=== PATIENT | female | born 1950 | race Caucasian/White ===

== ENCOUNTER → 2018-08-26 | Outpatient (CLI) | payer MEDICARE ==
[~2018-08-26] VITALS: Ht 154.9 cm; Wt 63.5 kg
[~2018-08-26] MED LIST: REGADENOSON 0.4 MG/5 ML PF SYG IVP SCH
== END | disposition home or self-care (01) ==
LOC: SHCH 08:15
PROVIDERS: ATTEND Internal Medicine Cardiovascular Disease
DX: R07.9 Chest pain, unspecified (principal); R06.00 Dyspnea, unspecified
CPT/HCPCS: 78452; 93017; 96374; A9500 ×2; J2785

== ENCOUNTER 2018-10-29 13:56 | Emergency (ER) | payer MEDICARE, OTHER ==
[2018-10-29] MEDS ORDERED: ACETAMINOPHEN 325 MG TAB ONE (14:10)
[2018-10-29 14:38] LABS: MEAN CORPUSCULAR VOLUME 99.5 fL (79-99); RED BLOOD CELL COUNT(AUTO) 4.18 MIL/uL (4.00-5.50); WHITE BLOOD COUNT (AUTO) 6.3 K/uL (4.8-10.8)
[2018-10-29 14:39] LABS: CARBON DIOXIDE 35 mmol/L (21-32); CHLORIDE 101 mmol/L (101-111); CREATININE 0.9 mg/dL (0.5-1.5); GLOMERULAR FILTR. RATE CALC 66 mL/min (>60); GLUCOSE,RANDOM 119 mg/dL (70-105); SODIUM SERUM 143 mmol/L (136-145); UREA NITROGEN, BLOOD 11 mg/dL (7-18)
[2018-10-29 14:42] LABS: INR 0.98 (0.85-1.15); PARTIAL THROMBOPLASTIN TIME 26.8 SEC (26.3-35.5); PROTHROMBIN TIME 10.3 SEC (9.6-11.6)
[2018-10-29 14:44] LABS: CREATINE KINASE, TOTAL 78 U/L (21-232)
[2018-10-29 14:45] LABS: EOSINOPHILS % (AUTO) 3.6 % (0.0-8.0); HEMATOCRIT 41.6 % (36-48); LYMPHOCYTES % (AUTO) 25.2 % (21.0-51.0); MEAN CORPUSCULAR HEMOGLOBIN 34.1 pg (27.0-33.0); MEAN CORPUSCULAR HGB CONC 34.2 g/dL (32.0-36.0); MONOCYTES % (AUTO) 7.8 % (3.0-13.0); NEUTROPHILS % (AUTO) 62.4 % (40.0-77.0); PLATELET COUNT (AUTO) 247 K/uL (130-400)
[2018-10-29 14:46] LABS: ALCOHOL, BLOOD < 3 mg/dL (0-10)
[2018-10-29] MEDS ORDERED: POTASSIUM CHLORIDE 20 MEQ ERTAB PO ONE (15:20)
== END 2018-10-29 16:34 | disposition home or self-care (01) ==
LOC: EDH 13:56
DX: S13.4XXA Sprain of ligaments of cervical spine, initial encounter (principal); S20.219A Contusion of unspecified front wall of thorax, initial encounter; R51 Headache; Z87.891 Personal history of nicotine dependence; Z88.8 Allergy status to other drugs, medicaments and biological substances; V49.88XA Car occupant (driver) (passenger) injured in other specified transport accidents, initial encounter; Y93.89 Activity, other specified; Y92.89 Other specified places as the place of occurrence of the external cause; Y99.8 Other external cause status
CPT/HCPCS: 36415; 70450; 71045; 71260; 72125; 80048; 82550; 84484; 85025; 85610; 85730; 93005; 99284; G0480

== ENCOUNTER 2018-11-01 16:11 | Inpatient (IN) | payer OTHER ==
[~2018-11-01] VITALS: Ht 154.9 cm; Wt 61.6 kg
[2018-11-01 16:48] LABS: BASOPHILS % (AUTO) 0.7 % (0.0-5.0); EOSINOPHILS % (AUTO) 1.7 % (0.0-8.0); HEMATOCRIT 43.9 % (36-48); LYMPHOCYTES % (AUTO) 20.7 % (21.0-51.0); MEAN CORPUSCULAR HEMOGLOBIN 34.1 pg (27.0-33.0); MEAN CORPUSCULAR HGB CONC 34.8 g/dL (32.0-36.0); MEAN CORPUSCULAR VOLUME 98.2 fL (79-99); MONOCYTES % (AUTO) 5.4 % (3.0-13.0); NEUTROPHILS % (AUTO) 71.5 % (40.0-77.0); NUCLEATED RED BLOOD CELLS 0.1 % (0.0-0.19); PLATELET COUNT (AUTO) 288 K/uL (130-400); RED BLOOD CELL COUNT(AUTO) 4.47 MIL/uL (4.00-5.50); RED CELL DISTRIBUTION WIDTH 12.9 % (11.0-15.5)
[2018-11-01 17:07] LABS: APPEARANCE,URINE CLOUDY (CLEAR); BILIRUBIN,URINE SMALL (NEGATIVE); COLOR,URINE YELLOW (YELLOW); GLUCOSE, URINE (UA) NEGATIVE (NEGATIVE); KETONES,URINE 5 mg/dL (NEGATIVE); LEUKOCYTE ESTERASE ,URINE MODERATE (NEGATIVE); NITRATE,URINE NEGATIVE (NEGATIVE); OCCULT BLOOD,URINE MODERATE (NEGATIVE); PH,URINE 5.5 (5.0-8.0); PROTEIN,URINE TRACE (NEGATIVE); UROBILINOGEN,URINE 0.2 mg/dL (0.2-1.0)
[2018-11-01 17:09] LABS: ALBUMIN 3.9 g/dL (3.5-5.0); BILIRUBIN,TOTAL 0.7 mg/dL (0.2-1.0); CREATININE 1.2 mg/dL (0.5-1.5); TOTAL PROTEIN, SERUM 8.2 g/dL (6.0-8.3)
[2018-11-01 17:12] LABS: POTASSIUM 2.9 mmol/L (3.5-5.1)
[2018-11-01 17:18] LABS: BACTERIA,URINE Few /HPF (None Seen); WBC,URINE 26-50 /HPF (0-1)
[2018-11-01 17:19] LABS: MUCUS,URINE Rare LPF (None Seen); SQUAMOUS EPITHELIAL CELL,UR Moderate /HPF (0-2)
[2018-11-01] MEDS ORDERED: POTASSIUM BICARB/CIT AC 25 MEQ TABLET.EFF ONE (17:47)
[2018-11-01 17:55] LABS: INR 0.99 (0.85-1.15); PARTIAL THROMBOPLASTIN TIME 25.7 SEC (26.3-35.5); PROTHROMBIN TIME 10.4 SEC (9.6-11.6)
[2018-11-01] MEDS: SODIUM CHLORIDE 0.9% 1000ML 1,000 ML IV SCH (20:09)
[2018-11-01] MEDS ORDERED: ONDANSETRON HCL 4 MG/2 ML VIAL IV PRN (20:15)
[2018-11-01] MEDS ORDERED: DIAZEPAM 5 MG TABLET PO PRN (20:15)
[2018-11-01] MEDS ORDERED: MORPHINE SULFATE 2 MG/ML 1ML SYG IV PRN (20:15)
[2018-11-01] MEDS ORDERED: MORPHINE SULFATE 4 MG/1ML SYG ONE (21:31)
[2018-11-01] MEDS ORDERED: ONDANSETRON HCL 4 MG/2 ML VIAL ONE (21:53)
[2018-11-01 23:45] VITALS: BP 113/64
[2018-11-02] MEDS: ZOSYN 3.375GM+NS 50ML 50 ML IV SCH ×4 (00:36→20:56)
[2018-11-02] MEDS: PHENAZOPYRIDINE HCL 200 MG TABLET PO SCH ×4 (00:36→20:56)
[2018-11-02] MEDS: FAMOTIDINE/PF 20 MG/2 ML VIAL IV SCH ×3 (00:36→20:56)
[2018-11-02] MEDS ORDERED: PNEUMOCOCCAL VACCINE POLYVALENT 0.5 ML/VIAL [PPV] IM ONE (01:30)
[2018-11-02 04:12] VITALS: BP 137/82
[2018-11-02] MEDS ORDERED: MORPHINE SULFATE 4 MG/1ML SYG ONE (04:29)
[2018-11-02] MEDS ORDERED: PNEUMOCOCCAL VACCINE POLYVALENT 0.5 ML/VIAL [PPV] ONE (07:10)
[2018-11-02 08:29] LABS: HEMATOCRIT 41.1 % (36-48); MEAN CORPUSCULAR HEMOGLOBIN 33.3 pg (27.0-33.0); MEAN CORPUSCULAR HGB CONC 33.8 g/dL (32.0-36.0); MEAN CORPUSCULAR VOLUME 98.7 fL (79-99); PLATELET COUNT (AUTO) 208 K/uL (130-400); RED BLOOD CELL COUNT(AUTO) 4.17 MIL/uL (4.00-5.50); WHITE BLOOD COUNT (AUTO) 8.1 K/uL (4.8-10.8)
[2018-11-02 08:39] LABS: POTASSIUM 3.1 mmol/L (3.5-5.1)
[2018-11-02] MEDS ORDERED: LIDOCAINE HCL-MPF 1% 2ML VIAL IVP PRN ×3 (09:00→09:15)
[2018-11-02] MEDS ORDERED: POTASSIUM CHLORIDE 10% ELIXIR 20 MEQ/15 ML UDCUP PO PRN ×2 (09:00)
[2018-11-02] MEDS ORDERED: POTASSIUM CHLORIDE 10MEQ/100ML 100 ML IV PRN (09:00)
[2018-11-02] MEDS ORDERED: POTASSIUM CHLORIDE 20MEQ/100ML 100 ML IV PRN ×2 (09:00→09:15)
[2018-11-02] MEDS ORDERED: POTASSIUM CHLORIDE 20 MEQ ERTAB PO PRN (09:00)
[2018-11-02 09:06] VITALS: BP 128/73
[2018-11-02] MEDS: POTASSIUM CHLORIDE 20 MEQ ERTAB PO PRN (12:33)
[2018-11-02] MEDS: SODIUM CHLORIDE 0.9% 1000ML 1,000 ML IV SCH (12:36)
[2018-11-02 14:19] VITALS: BP 134/77
[2018-11-02 16:54] VITALS: BP 146/68
[2018-11-02 19:30] VITALS: BP 131/79
[2018-11-02 23:28] VITALS: BP 124/77
[2018-11-03] MEDS: POTASSIUM CHLORIDE 20 MEQ ERTAB PO PRN ×3 (01:19→09:03)
[2018-11-03 03:45] VITALS: BP 144/83
[2018-11-03] MEDS: SODIUM CHLORIDE 0.9% 1000ML 1,000 ML IV SCH (04:02)
[2018-11-03] MEDS: ZOSYN 3.375GM+NS 50ML 50 ML IV SCH (05:06)
[2018-11-03 05:55] LABS: EOSINOPHILS % (AUTO) 4.1 % (0.0-8.0); HEMATOCRIT 40.7 % (36-48); LYMPHOCYTES % (AUTO) 23.4 % (21.0-51.0); MEAN CORPUSCULAR HEMOGLOBIN 33.9 pg (27.0-33.0); MEAN CORPUSCULAR VOLUME 99.8 fL (79-99); MONOCYTES % (AUTO) 8.7 % (3.0-13.0); NEUTROPHILS % (AUTO) 62.8 % (40.0-77.0); PLATELET COUNT (AUTO) 241 K/uL (130-400); RED BLOOD CELL COUNT(AUTO) 4.08 MIL/uL (4.00-5.50); RED CELL DISTRIBUTION WIDTH 13.1 % (11.0-15.5); WHITE BLOOD COUNT (AUTO) 5.1 K/uL (4.8-10.8)
[2018-11-03 06:25] LABS: CREATININE 0.9 mg/dL (0.5-1.5); POTASSIUM 3.5 mmol/L (3.5-5.1)
[2018-11-03 07:00] VITALS: BP 144/81
[2018-11-03] MEDS ORDERED: CEPH-578 PO (08:22)
[2018-11-03] MEDS ORDERED: ENOXAPARIN SODIUM 30 MG/0.3 ML SQ SCH (09:00)
[2018-11-03] MEDS: FAMOTIDINE/PF 20 MG/2 ML VIAL IV SCH (09:03)
[2018-11-03] MEDS: PHENAZOPYRIDINE HCL 200 MG TABLET PO SCH (09:03)
== END 2018-11-03 11:15 | disposition home or self-care (01) | DRG 605 ==
LOC: EDH 16:11 → EDHIP 16:12 → OBSVTOIN 16:12 → 3AH 23:34
PROVIDERS: ADMIT Hospitalist; ATTEND Hospitalist
PROC: 5A09357 Assistance with Respiratory Ventilation, Less than 24 Consecutive Hours, Continuous Positive Airway Pressure (ICD-10-PCS; principal; 2018-11-02)
PROC: 3E0234Z Introduction of Serum, Toxoid and Vaccine into Muscle, Percutaneous Approach (ICD-10-PCS; 2018-11-02)
DX: S20.211A Contusion of right front wall of thorax, initial encounter (principal); N39.0 Urinary tract infection, site not specified; E87.6 Hypokalemia; R29.6 Repeated falls; E78.5 Hyperlipidemia, unspecified; I10 Essential (primary) hypertension; W19.XXXA Unspecified fall, initial encounter; Y93.89 Activity, other specified; Y92.098 Other place in other non-institutional residence as the place of occurrence of the external cause; Y99.8 Other external cause status; Z88.8 Allergy status to other drugs, medicaments and biological substances; Z23 Encounter for immunization
CPT/HCPCS: 36415; 70450; 71046; 71110; 72125; 74176; 80048; 80053; 81001; 85025; 85027; 85610; 85730; 90732; 94660; G0009; G0378; J1650; J2270; J2405; J2543; J3490; J7030

== ENCOUNTER → 2019-06-03 | Outpatient (CLI) | payer MEDICARE ==
[~2019-06-03] MED LIST changes: +CEPH-578 PO; -REGADENOSON 0.4 MG/5 ML PF SYG IVP SCH
== END | disposition home or self-care (01) ==
LOC: RAH 09:50
PROVIDERS: ATTEND Physician Assistant Medical
DX: Z12.31 Encounter for screening mammogram for malignant neoplasm of breast (principal)
CPT/HCPCS: 77067

== ENCOUNTER → 2021-03-01 | Outpatient (CLI) | payer MEDICARE | END | disposition home or self-care (01) | LOC: SHCH 09:48 | PROVIDERS: ATTEND Internal Medicine Cardiovascular Disease | DX: I10 Essential (primary) hypertension (principal); R06.00 Dyspnea, unspecified | CPT/HCPCS: 93306; 93356 ==

== ENCOUNTER → 2022-01-29 | Outpatient (CLI) | payer MEDICARE | END | disposition home or self-care (01) | LOC: LAB 10:51 | PROVIDERS: ATTEND Internal Medicine Gastroenterology | DX: K29.40 Chronic atrophic gastritis without bleeding (principal); K31.89 Other diseases of stomach and duodenum; A04.72 Enterocolitis due to Clostridium difficile, not specified as recurrent; K76.0 Fatty (change of) liver, not elsewhere classified; K29.80 Duodenitis without bleeding; Z79.899 Other long term (current) drug therapy | CPT/HCPCS: 36415; 82607; 86677 ==

== ENCOUNTER 2022-05-11 15:11 | Emergency (ER) | payer MEDICARE ==
[~2022-05-11] VITALS: Ht 154.9 cm; Wt 68.0 kg
[2022-05-11 15:12] VITALS: BP 126/70
[2022-05-11] MEDS ORDERED: NAPR-1180 PO (16:15)
== END 2022-05-11 16:28 | disposition home or self-care (01) ==
LOC: EDH 15:11
DX: S63.601A Unspecified sprain of right thumb, initial encounter (principal); F41.9 Anxiety disorder, unspecified; E78.00 Pure hypercholesterolemia, unspecified; I10 Essential (primary) hypertension; M79.7 Fibromyalgia; Z90.710 Acquired absence of both cervix and uterus; X58.XXXA Exposure to other specified factors, initial encounter; Y93.89 Activity, other specified; Y92.89 Other specified places as the place of occurrence of the external cause; Y99.8 Other external cause status
CPT/HCPCS: 29125; 73130

== ENCOUNTER → 2024-10-11 | Outpatient (CLI) | payer MEDICARE ==
[~2024-10-11] MED LIST changes: +NAPR-1180 PO
--- NOTE | 2024-10-11 10:35 | HMCIMG ---
DEXA BONE DENSITY SURVEY HISTORY: Osteoporosis COMPARISON: None FINDINGS: Bone densitometry study was performed. Bone mineral density of the lumbar spine is 0.912 gram per centimeter square which corresponds to a T score of -1.2 and a Z score of 1.1. Bone mineral density of the left hip is 0.750 grams per centimeter square which corresponds to a T score of -1.6 and a Z score of 0.1. IMPRESSION: 1. Osteopenia of the lumbar spine and left hip.
== END | disposition home or self-care (01) ==
LOC: RAH 09:30
PROVIDERS: ATTEND Internal Medicine
DX: M85.89 Other specified disorders of bone density and structure, multiple sites (principal); M81.0 Age-related osteoporosis without current pathological fracture
CPT/HCPCS: 77080

== ENCOUNTER → 2025-01-31 | Outpatient (CLI) | payer MEDICARE ==
[2025-01-31 12:29] LABS: BILIRUBIN,TOTAL 0.4 mg/dL (0.2-1.0); CREATININE 1.1 mg/dL (0.5-1.0); POTASSIUM 4.6 mmol/L (3.5-5.1); TOTAL PROTEIN, SERUM 8.1 g/dL (6.0-8.3)
== END | disposition home or self-care (01) ==
LOC: LAB 09:38
PROVIDERS: ATTEND Internal Medicine Cardiovascular Disease
DX: I71.20 Thoracic aortic aneurysm, without rupture, unspecified (principal)
CPT/HCPCS: 36415; 80053

== ENCOUNTER → 2025-02-20 | Outpatient (CLI) | payer MEDICARE ==
[~2025-02-20] MED LIST changes: +IOHEXOL 350 MG/ML 100ML INFUS..BTL IV ONE
--- NOTE | 2025-02-20 11:37 | HMCIMG ---
CT angiogram chest CLINICAL INDICATION: Thoracic aortic aneurysm, without rupture, unspecified COMPARISON: None. CT Dose Index (CTDI): 113.50 mGy Dose Length Product (DLP): 1408.10 total mGy PROTOCOL: Contrast: 100 cc of Isovue-370, injected IV, no complications Examination is done at 2.5 millimeter volumetric acquisition after contrast administration. Photography is done at 5 millimeter thick intervals for the thorax. FINDINGS: There is no evidence of pulmonary embolism. There is tortuosity of the right brachiocephalic vasculature. The airway is intact. The trachea and major bronchi are unremarkable. No pulmonary infiltrates or mass lesions are seen. No pleural effusions are identified. The exam of the juancarlos and mediastinum is unremarkable. No evidence of hilar enlargement is seen. There is ectasia of the ascending thoracic aorta, maximum diameter 4.4 x 4.2 cm. No dissection. No occlusion. No rupture. No significant brachiocephalic vascular abnormalities are seen. The heart is unremarkable. It is not enlarged. No significant coronary arterial calcifications are seen. There is no pericardial effusion. The rib cage appears unremarkable. The soft tissues of the chest wall are unremarkable. The dorsal spine shows no significant abnormalities. Limited evaluation of the upper abdomen demonstrates no gross abnormalities. IMPRESSION: No evidence of pulmonary embolism. Ectasia of the descending aorta. This study was performed using dose reduction techniques to include automated exposure control and/or adjustment of the mA and/or kV according to patient size.
== END | disposition home or self-care (01) ==
LOC: RAH 10:10
PROVIDERS: ATTEND Internal Medicine Cardiovascular Disease
DX: I71.23 Aneurysm of the descending thoracic aorta, without rupture (principal); I71.21 Aneurysm of the ascending aorta, without rupture; I71.20 Thoracic aortic aneurysm, without rupture, unspecified; I77.1 Stricture of artery
CPT/HCPCS: 71275; Q9967

== ENCOUNTER → 2025-03-06 | Outpatient (CLI) | payer MEDICARE ==
[~2025-03-06] MED LIST changes: -IOHEXOL 350 MG/ML 100ML INFUS..BTL IV ONE
[2025-03-06 16:16] LABS: BASOPHILS # (AUTO) 0.08 K/uL (0.00-0.20); EOSINOPHILS # (AUTO) 0.15 K/uL (0.00-0.70); EOSINOPHILS % (AUTO) 1.9 % (0.0-8.0); HEMATOCRIT 42.5 % (36-48); IMMATURE GRANULOCYTE ABSOLUTE 0.02 K/uL (0-1); LYMPHOCYTES % (AUTO) 25.5 % (21.0-51.0); MEAN CORPUSCULAR HEMOGLOBIN 31.3 pg (27.0-33.0); MEAN CORPUSCULAR VOLUME 97.9 fL (79-99); MONOCYTES # (AUTO) 0.6 K/uL (0.1-1.0); MONOCYTES % (AUTO) 7.9 % (3.0-13.0); NEUTROPHILS % (AUTO) 63.4 % (40.0-77.0); PLATELET COUNT (AUTO) 344 K/uL (130-400); RED BLOOD CELL COUNT(AUTO) 4.34 MIL/uL (4.00-5.50); RED CELL DISTRIBUTION WIDTH 13.2 % (11.0-15.5)
[2025-03-06 16:32] LABS: ALBUMIN 4.3 g/dL (3.5-5.0); BILIRUBIN,TOTAL 0.6 mg/dL (0.2-1.0); POTASSIUM 4.5 mmol/L (3.5-5.1); TOTAL PROTEIN, SERUM 8.2 g/dL (6.0-8.3)
[2025-03-06 16:40] LABS: B-TYPE NATRIURETIC PEPTIDE 48 pg/mL (0-100)
== END | disposition home or self-care (01) ==
LOC: LAB 11:44
PROVIDERS: ATTEND Internal Medicine Cardiovascular Disease
DX: E78.5 Hyperlipidemia, unspecified (principal); R07.9 Chest pain, unspecified; R06.00 Dyspnea, unspecified
CPT/HCPCS: 36415; 80053; 80061; 83880; 85025

== ENCOUNTER 2025-04-11 09:25 | Day surgery (SDC) | payer MEDICARE ==
--- NOTE | 2025-04-07 11:36 | EKG ---
[facility] Test Date: 2025-04-07 Test Time: 11:34:24 Pat Name: JEFFERSON COLEMAN Department: [facility] Room: Gender: F Seasoner Hand: [id number] : 1950 Requested By: RAMIRO MORAN Order Number: [id number] Reading MD: Ramiro Moran Measurements Intervals [place] Rate: 74 P: 35 NE: 180 QRS: 6 QRSD: 82 T: 73 QT: 410 QTc: 455 Interpretive Statements Normal sinus rhythm Nonspecific ST and T wave abnormality Compared to ECG 10/29/2018 14:17:19 ST (T wave) deviation now present Sinus tachycardia no longer present Atrial premature complex(es) no longer present Left ventricular hypertrophy no longer present Early repolarization no longer present Electronically Signed On 04-10-2025 22:13:26 CDT by Ramiro Moran Please click the below link to view image of tracing.
[2025-04-07 11:45] LABS: BASOPHILS # (AUTO) 0.08 K/uL (0.00-0.20); BASOPHILS % (AUTO) 1.2 % (0.0-5.0); EOSINOPHILS # (AUTO) 0.09 K/uL (0.00-0.70); EOSINOPHILS % (AUTO) 1.3 % (0.0-8.0); HEMATOCRIT 41.7 % (36-48); IMMATURE GRANULOCYTE ABSOLUTE 0.02 K/uL (0-1); LYMPHOCYTES # (AUTO) 1.4 K/uL (1.0-4.8); LYMPHOCYTES % (AUTO) 20.8 % (21.0-51.0); MEAN CORPUSCULAR HEMOGLOBIN 31.5 pg (27.0-33.0); MEAN CORPUSCULAR HGB CONC 32.4 g/dL (32.0-36.0); MEAN CORPUSCULAR VOLUME 97.2 fL (79-99); MONOCYTES # (AUTO) 0.6 K/uL (0.1-1.0); MONOCYTES % (AUTO) 9.6 % (3.0-13.0); NEUTROPHILS # (AUTO) 4.5 K/uL (1.8-7.7); NEUTROPHILS % (AUTO) 66.8 % (40.0-77.0); PLATELET COUNT (AUTO) 281 K/uL (130-400); RED BLOOD CELL COUNT(AUTO) 4.29 MIL/uL (4.00-5.50); WHITE BLOOD COUNT (AUTO) 6.7 K/uL (4.8-10.8)
[2025-04-07 11:48] LABS: APPEARANCE,URINE CLEAR (CLEAR); BILIRUBIN,URINE NEGATIVE (NEGATIVE); COLOR,URINE COLORLESS (YELLOW); GLUCOSE, URINE (UA) NEGATIVE (NEGATIVE); KETONES,URINE NEGATIVE (NEGATIVE); LEUKOCYTE ESTERASE ,URINE NEGATIVE Leu/uL (NEGATIVE); NITRATE,URINE NEGATIVE (NEGATIVE); OCCULT BLOOD,URINE NEGATIVE (NEGATIVE); PH,URINE 6.5 (5.0-8.0); PROTEIN,URINE NEGATIVE (NEGATIVE); UROBILINOGEN,URINE 0.2 mg/dL (0.2-1.0)
[2025-04-07 11:52] VITALS: BP 125/71; PULSE 83; RESP 16; TEMP 97.5
[2025-04-07 11:54] LABS: INR 1.08 (0.85-1.15); PROTHROMBIN TIME 11.4 SEC (9.6-11.6)
[2025-04-07 11:55] LABS: PARTIAL THROMBOPLASTIN TIME 25.9 SEC (26.3-35.5)
[2025-04-07 11:56] LABS: ADD UA MICROSCOPIC NO
[2025-04-07 11:58] LABS: POTASSIUM 4.4 mmol/L (3.5-5.1)
[2025-04-07 12:13] LABS: B-TYPE NATRIURETIC PEPTIDE 19 pg/mL (0-100)
--- NOTE | 2025-04-07 14:26 | HMCIMG ---
CHEST 1VW HISTORY: Preop COMPARISON: None FINDINGS: A frontal projection of the chest was obtained. No acute pulmonary infiltrates is seen. The heart is borderline enlarged. Degenerative changes are seen. Aortic calcifications are seen. IMPRESSION: 1. No acute pulmonary infiltrate is seen.
[~2025-04-11] VITALS: Ht 154.9 cm; Wt 70.3 kg
[2025-04-11] VITALS (8 sets, daily range): BP systolic 131–165; BP diastolic 68–91; PULSE 80–99; RESP 15–16; TEMP 97.5–97.7
[~2025-04-11 09:25] MED LIST changes: +ASCO100031 PO; +CALC-1209 PO; -CEPH-578 PO; +DULO60CA64 PO; +LEVO75TA10 PO; +LOSA25TA41 PO; +MILK175T2 PO; -NAPR-1180 PO; +SIMV-43 PO; +TURM500C4 PO; +TYLENOL ARTHRITIS PO; +VITA-395 PO
[2025-04-11] MEDS ORDERED: LIDOCAINE HCL 400MG/20ML VIAL ONE (13:48)
[2025-04-11] MEDS ORDERED: IOHEXOL 350 MG/ML 100ML INFUS..BTL IV ONE (13:48)
[2025-04-11] MEDS ORDERED: SODIUM BICARB 50MEQ 50ML VIAL 50 ML ONE (13:48)
[2025-04-11] MEDS ORDERED: HEParin 10,000 UNIT/10ML (1,000 UNIT/ML) VIAL ONE (13:48)
[2025-04-11] MEDS ORDERED: HEParin-NS 1,000 UNIT/500 ML 1,000 ML IV ONE (13:48)
[2025-04-11] MEDS ORDERED: NITROGLYCERIN 50MG VIAL ONE (13:49)
[2025-04-11] MEDS ORDERED: FENTanyl CITRate PF 50 MCG/1 ML 2ML VIAL ONE ×2 (14:18→15:00)
[2025-04-11] MEDS ORDERED: MIDAZOLAM HCL 1 MG/ML 2ML VIAL ONE (14:18)
[2025-04-11] MEDS ORDERED: IOHEXOL-350 75 ML VIAL IV ONE (14:18)
[2025-04-11] MEDS ORDERED: niCARDIpine 25MG INJ IV ONE (14:18)
[2025-04-11] MEDS ORDERED: HEParin-NS 1,000 UNIT/500 ML 500 ML IV ONE (14:52)
[2025-04-11] MEDS ORDERED: 0.9% NACL 500ML IV.SOLN 500 ML IV SCH (15:30)
--- NOTE | 2025-04-11 15:36 | PRN ---
Coronary Arteriogram From Right Radial Approach Indication: Chest discomfort, high-risk nuclear stress test results. Technique: Patient was brought to the lab in a fasting state after informed consent and sedated with 1 mg Versed and 50 mcg fentanyl, administered twice. Careful monitoring of saturation was performed and when the patient experienced additional arousal and discomfort we administered an additional 25 mcg fentanyl. Sats were maintained above 90% throughout. Under local anesthesia with 1% lidocaine right radial access was gained and a 5/6 [place] Terumo sheath was inserted. We encountered a double hair pin 180 degree/180 degree bend in the right brachial which we negotiated with a baby J wire and then exchanged for a 75 cm sheath. At the junction between the right subclavian and innominate we in countered another example of extreme tortuosity which we negotiated with the baby J and the TIGG catheter, then exchanged for a Rivero wire and then reinserted the introducer on the sheath and advanced the sheath to the ascending aorta. We then attempted coronary arteriography using a six [place] TIGG which was unsuccessful. We exchanged for a 3.5 cm right Alana with which we could approach the right coronary ostium but could not engage it. We exchanged for a 3.5 cm left Alana with which we engaged the left main and obtain left coronary angiograms in multiple projections. We exchanged for a 1. Right Ikari with which we engaged the right coronary obtain right coronary arteriogram in multiple projections. We then removed the catheter and sheath over a guidewire and obtained hemostasis using a Terumo band. No complications occurred. The patient received 105 mL contrast. She was transferred from the lab in stable condition. Results: Hemodynamics: Blood pressure was around 110/70 throughout the case. Ventriculogram: Deferred Angiography: This was a right-dominant system of the right coronary supplies the posterior descending, small 1st posterolateral, a large 2nd posterolateral, and a small 3rd posterolateral. Proximally the right coronary measures about 3.8 mm diameter and there is a calcified 35% ostial stenosis, plus an eccentric 50% stenosis at the level of the 1st right ventricular marginal. This does not appear obstructive. The left main is notable for 40% ostial narrowing which does not appear obstructive; the left main appears to be about 3.3 mm diameter. The left anterior descending is notable for a septal head bucker with a 70% stenosis in it, but this is the only significant narrowing in the left coronary system. There is a 30% tubular narrowing just after the 1st diagonal and 1st septal in the proximal mid segment of the LAD. The left circumflex supplies two small obtuse marginals and a large lateral branch and there is a 30% narrowing between the 1st and 2nd obtuse marginal but there is no hemodynamically significant narrowing. Conclusions: Previous high-risk nuclear scan appears to be misleading. There is significant coronary plaque but there are no high-grade lesions in any of the coronary arteries. Invasive Intervention is not necessary. ROBERTO MORAN MD Apr 11, 2025 15:36
--- NOTE | 2025-04-11 18:00 | NUR ---
TR BAND REMOVED AT THIS TIME VSS NAD SLIGHT BRUISING NOTED TO PUNCTURE SITE. SKIN AROUND SOFT NO ACTIVE BLEEDING
--- NOTE | 2025-04-11 18:25 | NUR ---
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 IV WAS REMOVED PRIOR IN PT ROOM. DRIVING HOME
== END 2025-04-11 18:30 | disposition home or self-care (01) ==
LOC: DAH 09:25
PROVIDERS: ATTEND Internal Medicine Cardiovascular Disease
DX: R94.39 Abnormal result of other cardiovascular function study (principal); I25.118 Atherosclerotic heart disease of native coronary artery with other forms of angina pectoris; I25.84 Coronary atherosclerosis due to calcified coronary lesion; R07.89 Other chest pain; E78.5 Hyperlipidemia, unspecified; F41.9 Anxiety disorder, unspecified; F32.A Depression, unspecified; E03.9 Hypothyroidism, unspecified; Z90.49 Acquired absence of other specified parts of digestive tract; Z79.899 Other long term (current) drug therapy; Z79.890 Hormone replacement therapy; Z98.890 Other specified postprocedural states; Z90.710 Acquired absence of both cervix and uterus; Z98.41 Cataract extraction status, right eye; Z98.42 Cataract extraction status, left eye; Z82.49 Family history of ischemic heart disease and other diseases of the circulatory system; Z83.3 Family history of diabetes mellitus; Z80.9 Family history of malignant neoplasm, unspecified; Z88.8 Allergy status to other drugs, medicaments and biological substances
CPT/HCPCS: 80048; 83880; 85025; 85610; 85730; 81003; 36415; 71045; 93005; 93454; Q9965 ×2; C1887 ×2; C1769 ×3; C1894; J3010 ×2; J3490 ×4; J1644 ×3; J2250; Q9967 ×2; A4215; A4222; A4221; A4663; A4216; A4606; A4223 ×3; 99156; 99157